=== PATIENT | male | born 1995 | race African-American/Black ===

== ENCOUNTER 2019-07-10 12:45 | Emergency (ER) | payer OTHER ==
[~2019-07-10] VITALS: Ht 193 cm; Wt 68.1 kg
[~2019-07-10 12:45] MED LIST: OFLO5DRO OD
[2019-07-10 12:56] VITALS: BP 140/65
[2019-07-10] MEDS ORDERED: cefTRIAXone IM 250 MG VIAL IM ONE (13:15)
[2019-07-10] MEDS ORDERED: AZITHROMYCIN 250 MG TABLET. PO ONE (13:15)
[2019-07-10] MEDS ORDERED: ONDANSETRON ODT 4 MG TAB.RAPDIS. PO ONE (13:15)
[2019-07-10] MEDS ORDERED: METR-34 PO (13:23)
[2019-07-10 13:25] LABS: BILIRUBIN,URINE SMALL (NEG); CLARITY,URINE CLEAR; NITRITE,URINE NEGATIVE (NEG); PROTEIN,URINE NEGATIVE (NEG-TRACE)
--- NOTE | 2019-07-10 13:25 | PHYS DOC ---
Past Medical History Past Medical History: No Pertinent History Past Surgical History: No Surgical History Smoking Status: Never Smoker Alcohol Use: None Drug Use: None General Adult EDM: Chief Complaint: SEXUALLY TRANSMITTED DISEASE HPI: HPI: Patient is a 24 year old male who presents with patient states his girlfriend was diagnosed with trichomonas and she is still waiting on her gonorrhea and chlamydia screening. He has no symptoms at this time. He states he is here today because he wants to be treated because he knows that his girlfriend had trichomonas. Review of Systems: Review of Systems: : Denies dysuria. Girlfriend positive for trichomonas. [] Heart Score: Risk Factors: Risk Factors: DM, Current or recent (<one month) smoker, HTN, HLP, family history of CAD, obesity. Risk Scores: Score 0 - 3: 2.5% MACE over next 6 weeks - Discharge Home Score 4 - 6: 20.3% MACE over next 6 weeks - Admit for Clinical Observation Score 7 - 10: 72.7% MACE over next 6 weeks - Early Invasive Strategies Current Medications: Current Medications Medications (Trade) Dose Ordered Sig/Thi Start Time Stop Time Status Last Admin Dose Admin Azithromycin (Zithromax) 1,000 mg 1X ONCE 07/10/19 13:15 07/10/19 13:16 DC Ceftriaxone Sodium (Rocephin Im) 250 mg 1X ONCE 07/10/19 13:15 07/10/19 13:16 DC Ondansetron HCl (Zofran Odt) 4 mg 1X ONCE 07/10/19 13:15 07/10/19 13:16 DC Allergies: Allergies: Allergies Coded Allergies Type Severity Reaction Last Updated Verified No Known Drug Allergies 02/21/16 No Physical Exam: PE: Constitutional: Well developed, well nourished, no acute distress, non-toxic appearance. [] HENT: Normocephalic, atraumatic, bilateral external ears normal, oropharynx moist, no oral exudates, nose normal. [] Eyes: PERRLA, EOMI, conjunctiva normal, no discharge. [] Neck: Normal range of motion, no tenderness, supple, no stridor. [] Cardiovascular:Heart rate regular rhythm, no murmur [] Lungs & Thorax: Bilateral breath sounds clear to auscultation [] Abdomen: Bowel sounds normal, soft, no tenderness, no masses, no pulsatile masses. [] Skin: Warm, dry, no erythema, no rash. [] Back: No tenderness, no CVA tenderness. [] Extremities: No tenderness, no cyanosis, no clubbing, ROM intact, no edema. [] Neurologic: Alert and oriented X 3, normal motor function, normal sensory function, no focal deficits noted. [] Psychologic: Affect normal, judgement normal, mood normal. Normal physical exam [] Current Patient Data: Vital Signs: Vital Signs Date Time Temp Pulse Resp B/P (MAP) Pulse Ox O2 Delivery O2 Flow Rate FiO2 07/10/19 12:56 97.9 63 16 140/65 (90) 100 Room Air 97.9 EKG: EKG: [] Radiology/Procedures: Radiology/Procedures: [] Course & Med Decision Making: Course & Med Decision Making Pertinent Labs and Imaging studies reviewed. (See chart for details) Urine is sent off for chlamydia and gonorrhea. Patient is treated for chlamydia and gonorrhea. Patient is educated that he will be called only if his results are positive in 48 hours. No penile lesions or discharge seen. Patient denies dysuria symptoms. Since the patient's girlfriend is positive for trichomonas I will go ahead and treat him for trichomonas. [] Dragon Disclaimer: Jyoti Disclaimer: This electronic medical record was generated, in whole or in part, using a voice recognition dictation system. Departure Departure Impression: Primary Impression: Concern about STD in male without diagnosis Disposition: 01 HOME, SELF-CARE Condition: STABLE Referrals: NO PCP (PCP) Patient Instructions: Sexually Transmitted Disease, [id number] Additional Instructions: Follow-up with primary care provider if needed. Drink plenty of fluids. Take medications with food. Do not drink alcohol with the medication as it will make you vomit. Scripts Metronidazole (METRONIDAZOLE) 500 Mg Tablet 1 TAB PO BID for 7 Days, #14 TAB 0 Refills Prov: JAMIE ORTIZ APRN 07/10/19 JAMIE ORTIZ APRN Jul 10, 2019 13:25
[2019-07-10 13:32] LABS: COLOR,URINE YELLOW
[2019-07-10 13:34] LABS: BACTERIA,URINE FEW /HPF (0-FEW); SQUAMOUS EPITHELIAL CELL,UR OCC /LPF
[2019-07-10 13:35] LABS: RBC,URINE OCC /HPF (0-2)
== END 2019-07-10 13:59 | disposition home or self-care (01) ==
LOC: ER 12:45
DX: Z20.2 Contact with and (suspected) exposure to infections with a predominantly sexual mode of transmission (principal)
CPT/HCPCS: 81001; 87491; 87591; 96372; 99283; J0696; Q0162